=== PATIENT | female | born 1960 | race Caucasian/White ===

== ENCOUNTER → 2022-08-20 08:25 | Outpatient (ROUT) | payer OTHER, SELFPAY ==
[2022-08-20 08:39] LABS: Hematocrit 39.2 % (36-46); Hemoglobin 13.1 g/dL (12.0-16.0); Mean Corpuscular HGB Conc 33.3 % (30-36); Mean Corpuscular Hemoglobin 28.4 PG (26-34); Mean Corpuscular Volume 85.1 fL (80-100); Platelet Count 309 X10^3/uL (150-400); Red Cell Distribution Width 13.5 % (11.6-14.8); White Blood Cell Count 3.8 X10^3/uL (4.5-11.0)
[2022-08-20 09:46] LABS: TSH w/ Reflex to FT4 1.17 uIU/mL (0.47-4.68)
[2022-08-20 10:26] LABS: Neutrophils Absolute Manual 1634 /uL (3000-5900); Total Cells Counted 100
[2022-08-20 10:32] LABS: RBC Morphology Norm
== END ==
PROVIDERS: Family Provider Family Medicine; PCP Family Medicine; Visit Provider Emergency Medicine
DX: I10 Essential (primary) hypertension (principal); R71.8 Other abnormality of red blood cells
CPT/HCPCS: 84443; 85025

== ENCOUNTER → 2022-10-14 09:12 | Outpatient (CLI) | payer OTHER, SELFPAY ==
--- NOTE | 2022-10-14 09:15 | DI.MG.S_ITS ---
BILATERAL DIGITAL SCREENING MAMMOGRAM 3D/2D WITH CAD: 10/14/2022 Comparison is made to exams dated: 10/15/2011 mammogram, 08/13/2010 mammogram, and 08/06/2010 mammogram - [facility]. There are scattered areas of fibroglandular density in both breasts (category b / 25%-50% glandular tissue). Current study was also evaluated with a Computer Aided Detection (CAD) system. No significant masses, calcifications, or other findings are seen in either breast. There has been no significant interval change. IMPRESSION: NEGATIVE There is no mammographic evidence of malignancy. A 1 year screening mammogram is recommended. Based on the Tyrer Cuzick model (a risk assessment model) the patient's lifetime risk is 9.5% and her 10 year risk is 3.7%. According to the ACR, ACS, and NCCN guidelines, an annual breast MRI exam along with mammogram is recommended if the patient's lifetime risk is 20% or greater. This exam was interpreted at Station ID: [id number]. NOTE: For mammograms, a report in lay terms will be sent to the patient. Approximately 15% of breast malignancies will not be visualized mammographically. In the management of a palpable breast mass, a negative mammogram must not discourage biopsy of a clinically suspicious lesion. Electronically Signed By: Mikayla blanton/[email or web address]:10/14/2022 13:06:32 letter sent: Normal Exam ACR BI-RADS Category 1: Negative 3341F
== END ==
PROVIDERS: Family Provider Family Medicine; PCP Family Medicine; Referring Provider Family Medicine; Visit Provider Family Medicine
DX: Z12.31 Encounter for screening mammogram for malignant neoplasm of breast (principal)
CPT/HCPCS: 77063; 77067

== ENCOUNTER 2023-10-04 09:34 | Day surgery (SDC) | payer OTHER, SELFPAY ==
[2023-10-04 10:24] VITALS: BP 142/77; PULSE 57; RESP 18; TEMP 36.8; O2SAT 100
[2023-10-04] MEDS: LACTATED RINGERS 1,000 ML 42 ML IV (10:30)
--- NOTE | 2023-10-04 11:00 | P.HP_ITS ---
History of Present Illness History of Present Illness Date Patient Seen: 10/04/23 Time Patient Seen: 11:00 Chief complaint: SDC Narrative: 62-year-old woman here for screening colonoscopy. Last colonoscopy 10 years ago normal. No family history of intestinal malignancy. No abdominal concerns today. [facility] Medical History (Updated 08/23/23 @ 09:39 by Nannette Prescott MD) Colon cancer screening Hypertension Social History Smoking Status: Never smoker alcohol intake: current additional social history: TOB (none) ETOH 1-2 /night (more in the past CANCER screenings last labs: 08/2022 - TSH and CBC 10/2021: CR 0.65 LDL 124 TC 218 FHX: dad with early MS dying @ 62 yo. 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 PAP: decades ago colonoscopy: DUE last done at 52 yo Mammogram: 09/2022 Meds Home Medications and Allergies Home Medications Medication Instructions Recorded Confirmed Type lisinopril 20 mg tablet 20 mg PO .QHS #90 tabs 05/10/23 10/04/23 Rx Allergies Allergy/AdvReac Type Severity Reaction Status Date / Time No Known Drug Allergies Allergy Verified 10/04/23 10:15 Exam Vital Signs (past 8 hours): - 10/04/23 10:24 Temperature 98.2 F Pulse Rate 57 L Respiratory Rate 18 Blood Pressure 142/77 H Pulse Oximetry 100 Oxygen Delivery Method Room Air Oxygen Delivery Method Room Air Narrative Exam Narrative: General adult woman alert oriented no acute distress Chest nonlabored respiration Extremities warm well perfused Assessment & Plan Assessment & Plan narrative: The patient requires colorectal screening and colonoscopy is recommended. Technical details were discussed. Risks, benefits, alternatives explained. Risks including but not limited to myocardial infarction, aspiration, bleeding, pain, missed lesion, incomplete examination, need for further radiographic studies, colonic perforation, and need for major abdominal surgery were discussed. All questions were answered to their satisfaction, and they are in agreement with this plan.
[2023-10-04 11:41] VITALS: BP 103/52; PULSE 56; RESP 13; TEMP 36.2; O2SAT 100
[2023-10-04 11:46] VITALS: BP 96/60; PULSE 55; RESP 14; O2SAT 100
--- NOTE | 2023-10-04 11:48 | P.OP.COLON_ITS ---
Operative Date/Time/Diagnoses Date of procedure: 10/04/23 Time of procedure: 11:48 Pre-op diagnosis: Colorectal screening Post-op diagnosis: same Procedure & Clinicians Study performed: Colonoscopy Same procedure as scheduled: Yes Indications: 62-year-old woman here for routine screening colonoscopy Surgeon: Juan Souza Procedure Notes Procedure in detail: The history and physical was performed/updated and the patient is ASA class is 2. The procedure was discussed in detail with the patient. Potential risks complications including infection, bleeding, missed diagnosis, perforation, need for surgery, and were explained. Their questions were answered and informed consent was obtained. Patient was brought to the procedure room and placed standard monitoring equipment. The patient's vital signs were monitored continuously throughout the entire procedure. Prior to starting time-out was performed. The patient was placed in the left lateral recumbent position. Procedural sedation was administered by anesthesia. Examination began with a thorough inspection of the perianal area there was no evidence of fissures, fistulae, external hemorrhoids or cutaneous malignancy. The colonoscopy scope was then placed into the anal canal and was advanced to the cecum, which was identified by the ileocecal valve, the appendiceal orifice and the confluence of the taenia. The scope was then slowly withdrawn examining colon thoroughly in all directions, irrigating it of any residual stool. The scope was retroflexed within the rectum The patient tolerated the procedure well. They will be discharged once criteria are met. The prep was of good/excellent quality. The withdrawl time was 6 minutes. FINDINGS * Unremarkable colon. No masses polyps or inflammation. Normal healthy colonic mucosa. Specimen(s): none sent Impression: Normal colonoscopy Post-procedure Recommendations: Colonoscopy in 10 years
[2023-10-04 11:51] VITALS: BP 119/58; PULSE 53; RESP 14; O2SAT 100
[2023-10-04 11:55] VITALS: BP 107/61; PULSE 52; RESP 16; O2SAT 100
== END 2023-10-04 12:08 | disposition home or self-care (01) ==
PROVIDERS: Family Provider Family Medicine; PCP Family Medicine; Referring Provider Surgery; Visit Provider Surgery
PROC: 0DJD8ZZ Inspection of Lower Intestinal Tract, Via Natural or Artificial Opening Endoscopic (ICD-10-PCS; CPT 45378; principal; 2023-10-04 10:45)
DX: Z12.11 Encounter for screening for malignant neoplasm of colon (principal)
CPT/HCPCS: 45378; J2704